=== PATIENT | male | born 1940 | race African-American/Black ===

== ENCOUNTER → 2017-05-20 | Day surgery (SDC) | payer OTHER ==
--- NOTE | 2017-05-21 13:26 | PATH ---
Cytology Non-Gynecological Report Patient Name: NIKOLAS JUNE [facility]. Rec. #: [id number] /Age/Gender: 1940 (Age: 77) / M Account: [id number] Location: RADIOLOGY Taken: 05/20/2017 Received: 05/20/2017 Reported: 05/21/2017 Physicians: Jayro Glez M.D. Specimen(s) Received RIGHT UPPER THYROID FNA Clinical History Right thyroid nodule, upper, 1.23 x 0.86 x 0.61 cm Final Diagnosis THYROID, RIGHT, UPPER, FINE NEEDLE ASPIRATION: SATISFACTORY FOR EVALUATION. BETHESDA CLASS II: BENIGN. CYTOLOGIC FINDINGS ARE CONSISTENT WITH A BENIGN FOLLICULAR NODULE. FEW CLUSTERS OF SMALL FOLLICULAR CELLS AND ABUNDANT COLLOID PRESENT. Electronically Signed Evelina Goff M.D. Gross Description Received are eight direct smears, four of which are air-dried and Diff-Quik stained, and four of which are alcohol fixed and Pap stained. Also received is 20 ml of bloody formalin from which one cellblock is prepared.
== END | disposition home or self-care (01) ==
LOC: JRADIR 08:41
PROVIDERS: ATTEND Otolaryngology Facial Plastic Surgery
PROC: 0G9H3ZX Drainage of Right Thyroid Gland Lobe, Percutaneous Approach, Diagnostic (ICD-10-PCS; principal; 2017-05-20)
DX: E04.1 Nontoxic single thyroid nodule (principal)
CPT/HCPCS: 76942; 88173; 88305-TC